=== PATIENT | male | born 1995 | race Caucasian/White ===

== ENCOUNTER 2018-10-07 15:19 | Emergency (ER) | payer SELFPAY ==
[2018-10-07 15:52] VITALS: BP 112/73; PULSE 68; TEMP 98.3; BMI 34.4
[2018-10-07] MEDS ORDERED: IBUPROFEN 400 MG TABLET (FP) PO ONE ×2 (15:54→16:19)
--- NOTE | 2018-10-07 15:54 | PDOC ---
Rapid Medical Evaluation Medical Evaluation: I have performed a brief in-person evaluation of this patient. The patient presents with a chief complaint of: L sided CP x 3 months with SOB, worsening this morning; denies fever, cough; pain started after getting hit in chest with soccer ball 3 months ago; did not take any pain meds this AM Pertinent physical exam findings: In NAD, lungs clear I have ordered the following: EKG, CXR, Motrin The patient will proceed to the ED for further evaluation. 10/07/18 15:48
--- NOTE | 2018-10-07 18:47 | PDOC ---
Attending Attestation - HPI HPI: 10/07/18 19:11 The patient is a 23 year old male, with no significant past medical history, who presents to the emergency department with, 5 months of chest pain worse today. He denies any recent fevers, chills, headache or dizziness. He denies any recent nausea, vomit, diarrhea or constipation. He denies any recent shortness of breath. He denies any recent dysuria, frequency, urgency or hematuria. Allergies: NKDA - Physicial Exam PE: 10/07/18 19:11 GENERAL: Well-appearing, well-nourished. No apparent distress. HEENT: Normocephalic, atraumatic. PERRL, EOM intact. CARDIOVASCULAR: Normal S1, S2. Regular rate and rhythm. PULMONARY: Clear to auscultation bilaterally. ABDOMEN: Soft, non-distended, non-tender. EXTREMITIES: Normal ROM in all four extremities. No gross deformities. SKIN: Warm, dry. No rash NEUROLOGICAL: No focal neurological deficits. <Tracy Pang - Last Filed: 10/07/18 19:11> - Resident Resident Name: Bubba Young - ED Attending Attestation I have performed the following: I have examined & evaluated the patient, The case was reviewed & discussed with the resident, I agree w/resident's findings & plan, Exceptions are as noted - HPI HPI: 10/07/18 18:47 23 yo male p/w chronic chest pain that became worse today - Medical Decision Making 10/08/18 02:24 neg trop cxr napd ekg nsr RBBB,no prior ekg for comparison referred to follow up with PCP,cards d/c home <Jelena Mac - Last Filed: 10/08/18 02:25> Attestations - Attestations 10/07/18 19:13 Documentation prepared by Tracy Pang, acting as infertility medical assistant for Jelena Mac MD. <Tracy Pang - Last Filed: 10/07/18 19:11>
[2018-10-07 18:48] LABS: HEMATOCRIT 46.4 % (35.4-49); HEMOGLOBIN 16.4 GM/dL (11.7-16.9); MCH 32.2 pg (25.7-33.7); MCHC 35.3 g/dl (32.0-35.9); MEAN CELL VOLUME 91.2 fl (80-96); PLATELET COUNT 196 K/MM3 (134-434); RBC 5.08 M/mm3 (4.00-5.60); RDW 13.1 % (11.9-15.9); WHITE BLOOD COUNT 6.5 K/mm3 (4.0-10.0)
--- NOTE | 2018-10-07 18:52 | PDOC ---
History of Present Illness - General Chief Complaint: Chest Pain Stated Complaint: CHEST PAIN Time Seen by Provider: 10/07/18 15:49 History Source: Patient Exam Limitations: No Limitations - History of Present Illness Initial Comments: 10/07/18 18:45 Patient is a 23M with no significant medical history here today complaining of chest pain that onset 5 months ago after being struck in the chest with a soccer ball. Patient states that he is coming in today because the pain has been worse in the past two days. The pain is located on the left aspect of his chest without radiation. Patient states that the pain is worse with inspiration. Denies fevers, chills, nausea, vomiting. Denies cough, shortness of breath. Patient denies recent travel, leg swelling, history of blood clots. Given motrin in RME. Past History - Past Medical History Allergies/Adverse Reactions: Allergies Allergy/AdvReac Type Severity Reaction Status Date / Time No Known Allergies Allergy Verified 10/07/18 15:52 COPD: No Dementia: No Disorders: No Kidney Stones: No - Surgical History Appendectomy: No Neurologic Surgery: No - Immunization History Immunization Up to Date: No - Suicide/Smoking/Psychosocial Hx Smoking History: Never smoked Have you smoked in the past 12 months: No Information on smoking cessation initiated: No Hx Alcohol Use: No Drug/Substance Use Hx: No Review of Systems - Review of Systems Comments:: 10/07/18 18:52 GENERAL/CONSTITUTIONAL: No fever or chills. No weakness. HEAD, EYES, EARS, NOSE AND THROAT: No change in vision. No ear pain or discharge. No sore throat. CARDIOVASCULAR: +chest pain no shortness of breath RESPIRATORY: No cough, wheezing, or hemoptysis. GASTROINTESTINAL: No nausea, vomiting, diarrhea or constipation. GENITOURINARY: No dysuria, frequency, or change in urination. MUSCULOSKELETAL: No joint or muscle swelling or pain. No neck or back pain. SKIN: No rash NEUROLOGIC: No headache, vertigo, loss of consciousness, or change in strength/ sensation. ENDOCRINE: No increased thirst. No abnormal weight change HEMATOLOGIC/LYMPHATIC: No anemia, easy bleeding, or history of blood clots. ALLERGIC/IMMUNOLOGIC: No hives or skin allergy. *Physical Exam - Vital Signs Last Vital Signs Temp Pulse Resp BP Pulse Ox 98.3 F 68 20 112/73 98 10/07/18 15:50 10/07/18 15:50 10/07/18 15:50 10/07/18 15:50 10/07/18 15:50 - Physical Exam Comments: 10/07/18 18:52 GENERAL: Awake, alert, and fully oriented, in no acute distress HEAD: No signs of trauma, normocephalic, atraumatic EYES: PERRLA, EOMI, sclera anicteric, conjunctiva clear ENT: Auricles normal inspection, hearing grossly normal, nares patent, oropharynx clear without exudates. Moist mucosa NECK: Normal ROM, supple, no lymphadenopathy, JVD, or masses LUNGS: No distress, speaks full sentences, clear to auscultation bilaterally HEART: Regular rate and rhythm, normal S1 and S2, no murmurs, rubs or gallops, peripheral pulses normal and equal bilaterally. Nontender chest wall. ABDOMEN: Soft, nontender, normoactive bowel sounds. No guarding, no rebound. No masses EXTREMITIES: Normal inspection, Normal range of motion, no edema. No clubbing or cyanosis. NEUROLOGICAL: Cranial nerves II through XII grossly intact. Normal speech, normal gait, no focal sensorimotor deficits SKIN: Warm, Dry, normal turgor, no rashes or lesions noted. Moderate Sedation - Procedure Monitoring Vital Signs: Procedure Monitoring Vital Signs Temperature 98.3 F 10/07/18 15:50 Pulse Rate 68 10/07/18 15:50 Respiratory Rate 20 10/07/18 15:50 Blood Pressure 112/73 10/07/18 15:50 O2 Sat by Pulse Oximetry (%) 98 10/07/18 15:50 ED Treatment Course - LABORATORY CBC & Chemistry Diagram: 10/07/18 18:40 10/07/18 18:40 - Medications Given in the ED: ED Medications Discontinued Medications Generic Name Dose Route Start Last Admin Trade Name Freq PRN Reason Stop Dose Admin Ibuprofen 800 mg 10/07/18 15:54 10/07/18 16:22 Motrin - PO 10/07/18 15:55 800 mg ONCE ONE Administration Medical Decision Making - Medical Decision Making 10/07/18 18:53 Patient is 23M here today with chest pain. CXR and motrin ordered by RME. CXR clear. EKG shows nsr with RBBB. No st elevations/depressions. Normal axis. Normal QTc/LA intervals. No significant t wave abnormalities. Chest pain atypical, labs ordered given RBBB pattern. Likely d/c with cards follow up. 10/07/18 19:21 CBC normal. CMP normal. Trop negative. Will instruct patient to take motrin for pain, follow up with cards regarding EKG. *DC/Admit/Observation/Transfer Diagnosis at time of Disposition: Chest pain - Discharge Dispostion Disposition: HOME Condition at time of disposition: Good Decision to Admit order: No - Referrals Referrals: Kiran Smith MD [Staff Physician] - - Patient Instructions Printed Discharge Instructions: DI for Chest Pain Additional Instructions: Please follow up with your primary care doctor this week. Please also follow up with a [place] line attendant, you had an abnormal EKG. Please return if you have any new, worsening or concerning symptoms, especially fever, increasing pain and shortness of breath. Por favor kris un seguimiento con rooney mdico de atencin primaria esta semana. Por favor, tambin kris un seguimiento con un cardilogo, tuvo un ECG anormal. Regrese si tiene algn sntoma nuevo, que empeora o que se relaciona con l, especialmente fiebre, aumento del dolor y falta de aliento. - Post Discharge Activity
[2018-10-07 19:20] LABS: ALBUMIN 4.6 g/dl (3.4-5.0); ALK PHOS 83 U/L (45-117); ANION GAP 7 MMOL/L (8-16); BILIRUBIN,TOTAL 0.7 mg/dL (0.2-1); BLOOD UREA NITROGEN 18 mg/dL (7-18); CALCIUM 9.1 mg/dL (8.5-10.1); CHLORIDE 106 mmol/L (98-107); CO2 27 mmol/L (21-32); CREATININE 0.9 mg/dL (0.55-1.3); GLUCOSE,RANDOM 94 mg/dL (74-106); POTASSIUM 4.2 mmol/L (3.5-5.1); SGOT/AST 23 U/L (15-37); SGPT/ALT 22 U/L (13-61); SODIUM 140 mmol/L (136-145); TOT PROT 8.1 g/dl (6.4-8.2)
[2018-10-07 19:41] LABS: INR 1.04 (0.83-1.09); PROTHROMBIN TIME (PATIENT) 12.3 SEC (9.7-13.0)
--- NOTE | 2018-10-08 16:31 | EKG ---
Test Reason : Blood Pressure : / mmHG Vent. Rate : 063 BPM Atrial Rate : 063 BPM P-R Int : 140 ms QRS Dur : 136 ms QT Int : 426 ms P-R-T Axes : 056 026 040 degrees QTc Int : 435 ms NORMAL SINUS RHYTHM RIGHT BUNDLE BRANCH BLOCK ABNORMAL ECG NO PREVIOUS ECGS AVAILABLE Confirmed by Yasmani Harry ([id number]) on 10/08/2018 4:31:13 PM Referred By: Confirmed By:Yasmani Harry
== END 2018-10-07 19:38 | disposition home or self-care (01) ==
LOC: JER 15:19
DX: R07.89 Other chest pain (principal)
CPT/HCPCS: 36415; 71046-TC-FY; 80053; 82550; 82553; 84484; 85027; 85610; 93005; 93010; 99281-25; 99284-25